=== PATIENT | male | born 1975 | race Caucasian/White ===

== ENCOUNTER 2022-06-05 17:14 | Emergency (ER) | payer OTHER, MEDICAID ==
[2022-06-05 17:41] LABS: PTT,PARTIAL THROMBOPLSTIN TIME 21.7 SEC (20.5-30.9)
[2022-06-05 17:44] LABS: ANION GAP 18.1 mmol/L (5-15); CHLORIDE,CL 99 mmol/L (98-107); ESTIMATED GFR 93 mL/min (>=60); SODIUM,NA 137 mmol/L (136-145)
[2022-06-05] MEDS ORDERED: Acetaminophen/oxyCODONE 325-5 MG Tab PO ONE (19:17)
[2022-06-05] MEDS ORDERED: Iopamidol 755 Mg/ML 100 ML Bottle IVPUSH ONE (19:41)
[2022-06-06] MEDS ORDERED: HYDROmorphone 0.5 MG/0.5 ML Syringe IVPUSH ONE (00:01)
[2022-06-06] MEDS ORDERED: HYDROmorphone 2 MG Tab PO PRN ×2 (00:22→00:29)
== END 2022-06-06 00:46 | disposition home or self-care (01) ==
LOC: VM.ED 17:14
DX: S12.400A Unspecified displaced fracture of fifth cervical vertebra, initial encounter for closed fracture (principal); S00.83XA Contusion of other part of head, initial encounter; I10 Essential (primary) hypertension; V19.9XXA Pedal cyclist (driver) (passenger) injured in unspecified traffic accident, initial encounter
CPT/HCPCS: 36000; 36415; 70450; 70498; 71045; 72125; 72170; 73630-RT; 80053; 83605; 85025; 85610; 85730; 96374; 99284; 99284-25; A9270-GY; J1170; Q9967